=== PATIENT | female | born 1975 | race Caucasian/White ===

== ENCOUNTER 2020-06-15 19:02 | Emergency (ER) | payer SELFPAY ==
[~2020-06-15] VITALS: Ht 154.9 cm; Wt 45.4 kg
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
[2020-06-15 19:24] VITALS: BP 121/78
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
--- NOTE | 2020-06-15 19:59 | NUR ---
Medicated as ordered, tolerated well, patient keeps talking to herself- no one around her.
--- NOTE | 2020-06-15 20:20 | NUR ---
Patient being very loud, attempted to calm her down by MD,Nurses, Security guards with no success, patient walked out without signing AMA form.
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
== END 2020-06-15 20:20 | disposition left against medical advice (07) ==
LOC: EDBD 19:02 → EMR 19:48
DX: R45.1 Restlessness and agitation (principal); Z53.29 Procedure and treatment not carried out because of patient's decision for other reasons
CPT/HCPCS: 81025; 99283